=== PATIENT | female | born 1985 | race Caucasian/White ===

== ENCOUNTER 2022-06-18 13:19 | Outpatient (CLI) | payer BC, SELFPAY ==
[2022-06-18 20:08] LABS: Hepatitis B Surface Antibody* Negative (Negative)
[2022-06-21 03:03] LABS: Varicella-Zoster Virus Ab, IgG 168.9 IV
[2022-06-21 03:05] LABS: Rubella Antibody IgG 51.8 IU/mL
== END 2022-06-18 13:20 | disposition home or self-care (01) ==
PROVIDERS: PCP Family Medicine; Visit Provider Family Medicine
DX: Z00.00 Encounter for general adult medical examination without abnormal findings (principal); Z71.85 Encounter for immunization safety counseling
CPT/HCPCS: 86706; 86735; 86762; 86765; 86787

== ENCOUNTER 2022-12-25 00:18 | Emergency (ER) | payer BC, SELFPAY ==
[2022-12-25] VITALS (17 sets, daily range): BP systolic 117–159; BP diastolic 72–114; PULSE 58–78; RESP 20; TEMP 36.7; O2SAT 91–99; BMI 27.5
[2022-12-25] MEDS: 0.9 % SODIUM CHLORIDE 1000 ml 1,000 ML IV (00:29)
--- NOTE | 2022-12-25 00:30 | ED_ITS ---
HPI - General Adult General Chief complaint: Neuro Symptoms/Altered Deficit Stated complaint: Overdose Time Seen by Provider: 12/25/22 00:27 Source: family Mode of arrival: EMS Limitations: language barrier (Hearing impaired) History of Present Illness HPI narrative: Hearing impaired woman comes in with her adult daughter. Daughter reports that patient had been behaving normally most of the night. They had dinner as a family, she was awake and talking to daughter and sibling up until about 2 hours prior to arrival. About 30 minutes prior to arrival, patient came into daughters room, flopped down on daughters bed and daughter notice that she seemed impaired. She kept clutching her chest and was twitching. She seemed anxious. Daughter thinks that she might have eaten an edible from the tobacco store. Uncertain of contents. She does not typically use drugs per daughter report. Uncertain with time of ingestion. No prior cardiac history, no stroke history. No alcohol intoxication. No trauma or injury. No prior history of similar symptoms. History is incredibly limited as patient is hearing impaired and we are triage ring her quickly, cloth boil off machine operator video monitor is in another room with a Turkmen- speaking patient. Patient is groggy and would not be able to use the video cloth boil off machine operator at the moment anyway. Daughter does attempt to interpret. Daughter states that she does not read lips. Daughter states that past medical history is benign, no major long-term health problems. No prescription medications, no allergies. No recent surgeries. Socially, she does smoke tobacco and they have reason to suspect that she ingested the edible tonight. No recent travel. ROS is limited by situation, daughter states that she has been behaving normally and has not complained of any ailments today times 12 systems. Related Data Home Medications Medication Instructions Recorded Confirmed No Known Home Medications 06/18/22 12/25/22 Allergies Allergy/AdvReac Type Severity Reaction Status Date / Time No Known Drug Allergies Allergy Verified 12/25/22 00:30 [facility] Medical History Deaf ?H91.90 - Unspecified hearing loss, unspecified ear (ICD-10) Surgical History No significant past surgical history Social History Smoking Status: Never smoker Exam Const: Vital Signs, click to edit/add: Vital Signs - 24 hr 12/25/22 00:27 12/25/22 00:33 12/25/22 00:25 Temperature 98.0 F Pulse Rate 77 Pulse Rate [Right Pulse Oximeter] 72 Respiratory Rate 20 Blood Pressure 149/94 H Blood Pressure [Ri ght Upper Arm] 143/89 H Pulse Oximetry 99 94 91 Oxygen Delivery Me thod Room Air 12/25/22 00:28 12/25/22 00:29 12/25/22 00:30 Temperature Pulse Rate 65 60 58 L Pulse Rate [Right Pulse Oximeter] Respiratory Rate Blood Pressure 130/76 Blood Pressure [Ri ght Upper Arm] Pulse Oximetry 99 97 97 Oxygen Delivery Me thod 12/25/22 00:31 12/25/22 00:45 12/25/22 01:00 Temperature Pulse Rate 60 60 78 Pulse Rate [Right Pulse Oximeter] Respiratory Rate Blood Pressure 117/77 Blood Pressure [Ri ght Upper Arm] Pulse Oximetry 97 98 97 Oxygen Delivery Me thod 12/25/22 01:02 12/25/22 01:03 12/25/22 01:15 Temperature Pulse Rate 78 71 62 Pulse Rate [Right Pulse Oximeter] Respiratory Rate Blood Pressure 154/72 H Blood Pressure [Ri ght Upper Arm] Pulse Oximetry 99 98 98 Oxygen Delivery Me thod 12/25/22 01:30 12/25/22 01:31 12/25/22 01:45 Temperature Pulse Rate 72 72 63 Pulse Rate [Right Pulse Oximeter] Respiratory Rate Blood Pressure 159/85 H Blood Pressure [Ri ght Upper Arm] Pulse Oximetry 98 98 99 Oxygen Delivery Me thod 12/25/22 02:00 12/25/22 02:02 Temperature Pulse Rate 73 71 Pulse Rate [Right Pulse Oximeter] Respiratory Rate Blood Pressure 130/114 H Blood Pressure [Ri ght Upper Arm] Pulse Oximetry 99 99 Oxygen Delivery Me thod Documenting provider has reviewed patient's vital signs: yes Exam limitations: altered mental status and language barrier Other: Appears well-nourished, well-hydrated. She is well groomed. It is clear that she is drowsy but arousable. Rare Twitching movements seem under her conscious control. There is no evidence of seizure activity. HENMT: Common normals: normocephalic Head and scalp: normocephalic Face and sinus: normal facial exam Mouth: oral and palatal mucosa normal Throat: posterior oropharynx normal Eye: Common normals: conjunctivae normal General eye: normal appearance of both eyes Conjunctiva: conjunctiva(e) normal Other: Pupils equal Neck & C-Spine: Common normals: full ROM and no lymphadenopathy Resp: Common normals: normal respiratory effort, no retractions, no use of accessory muscles and clear to auscultation bilaterally Auscultation: clear to auscultation bilaterally Cardio: Common normals: regular rate, regular rhythm, S1 normal heart sound, S2 normal heart sound and no murmurs Rate: regular rate Rhythm: regular rhythm Heart sounds: S1 normal and S2 normal GI: Common normals: Normal to inspection, nondistended, normoactive bowel sounds present, soft to palpation, non-tender and no hepatosplenomegaly Palpation: soft and no hepatosplenomegaly Back & Pelvis: Common normals: thoracic and lumbar spine normal to inspection Extremity: Common normals: normal to inspection, full ROM and normal capillary refill Neuro: Sensorium/orientation: somnolent Motor exam: muscle tone normal throughout Psych: Other: Attention and judgment impaired on initial exam. Seems mildly anxious Skin: Common normals: no rashes or lesions noted Narrative: No signs of trauma or drug use. General skin exam: no rashes or lesions noted Course Vital Signs Vital signs: Initial Vital Signs Pulse Rate 77 12/25/22 00:25 Blood Pressure 149/94 H 12/25/22 00:25 Blood Pressure Mean 112 H 12/25/22 00:25 Pulse Oximetry 91 12/25/22 00:25 Vital Signs Pulse Rate 77 12/25/22 00:25 Blood Pressure 149/94 H 12/25/22 00:25 Pulse Oximetry 91 12/25/22 00:25 Temperature 98.0 F 12/25/22 00:27 Pulse Rate 71 12/25/22 02:02 Respiratory Rate 20 12/25/22 00:27 Blood Pressure 130/114 H 12/25/22 02:02 Pulse Oximetry 99 12/25/22 02:02 Oxygen Delivery Method Room Air 12/25/22 00:27 Medical Decision Making MDM Narrative Medical decision making narrative: Suspect mild intoxication. Vital signs are stable. EKG reassuring. Protecting her airway and no signs of hypoxia. Will start some normal saline, observed. Her symptoms should alan. If any signs of neurological deterioration, recommend further workup. Consider benzodiazepine if anxiety worsens. Will likely monitor a couple of hours. Will attempt to repeat neuro exam and repeat interview once patient is more alert and can participate with video cloth boil off machine operator or daughter restaurant greeter Update: 130: Patient becoming more alert. Friend restaurant greeter is here now also. Daughter has a picture of the product that they suspect she took. It is a Delta 8 gummy with THC. We are uncertain how many she took but the package contains 10 product. Patient will arouse to touch, no longer twitching. She is no longer clutching at her chest as she was doing at home seems mildly anxious and uncomfortable. Daughter asks if she can take her home. I recommended 2 hours of observation. My rationale is that any potential ingestion should peak by then. But I do anticipate that she will be able to go home without any further treatment. She has completed her fluid, normal labs reviewed with family. Update: Patient monitored until she was able to safely ambulate with her family, so mildly drowsy but neurologically at baseline. Discharge instructions given. Lab Data Lab results reviewed: Yes I reviewed the patient's lab results Lab results narrative: Reassured Labs: Lab Results 12/25/22 12/25/22 Range/Units 00:26 00:27 WBC 12.73 H (4.50-11.00) K/uL RBC 4.69 (4.00-5.20) m/uL Hgb 13.3 (12.0-16.0) gm/dL Hct 39.9 (33.0-51.0) % MCV 85 (80-100) fL MCH 28 (26-34) pg MCHC 33 (32-36) gm/dL RDW Coeff of Sada 12.7 (11.5-15.5) % Plt Count 314 (140-440) K/uL Neut % (Auto) 43.3 (42.0-72.0) % Lymph % (Auto) 48.8 H (20-44) % [place] % (Auto) 6.3 (0.0-11.0) % Eos % (Auto) 1.1 (0.0-7.0) % Baso % (Auto) 0.3 (0.0-3.0) % Neut # (Auto) 5.50 (1.7-7.0) K/uL Lymph # (Auto) 6.20 H (0.90-2.90) K/uL [place] # (Auto) 0.80 (0.00-0.90) K/UL Eos # (Auto) 0.10 (0.00-0.50) K/uL Baso # (Auto) 0.00 (0.00-0.30) K/uL Sodium 138 (135-149) mmol/L Potassium 3.4 L (3.6-5.1) mmol/L Chloride 106 (96-114) mmol/L Carbon Dioxide 25 (20-32) mmol/L BUN 12 (5-24) mg/dL Creatinine 0.8 (0.5-1.5) mg/dL Estimated Creat Clear 82.33 Estimated GFR 97 ml/min Glucose 169 H (60-115) mg/dL Calcium 9.0 (8.4-10.6) mg/dL Troponin I < 0.01 L (0.01-0.04) ng/mL C-Reactive Protein 0.6 (0.5-1.0) mg/dL HCG, Qual Negative (Negative) Ethyl Alcohol < 0.01 L (0.01-0.03) % POC Troponin I 0.00 L (0.01-0.04) ng/ml ECG Data Attestation: I personally reviewed and interpreted this ECG as follows: Prior ECG tracings: not available for review Interpretation: Normal sinus rhythm, rate 64. No significant ST or T-wave abnormalities. Normal axis, good R-wave progression. Normal EKG Discharge Plan Discharge Clinical Impression: Side effect of drug Patient Disposition: Home w/ Parent or Adult Condition: Improved Instructions: Adverse Drug Reaction (ED) Additional Instructions: Unfortunately, side effects from THC can be unpredictable. Most people take these products with the intent of making them calm. Unfortunately, sometimes the instead make you paranoid and restless. Blood work is very reassuring, there are no signs of poisoning, seizure, heart problems or other complication. The side effects do seem to be improving with time. It will take 5-8 hours to completely wear off. It is okay to use melatonin or Benadryl to help sleep. I do not recommend use of THC products for you in the future. The side effects and experience overall can be quite unpredictable. You may resume all usual activities morning. Activity Level: No Restrictions Discharge Diet: Regular Prescriptions: No Action No Known Home Medications Follow Up/Referrals: Jarred Rodriguez MD [Primary Care Provider] - Stand Alone Forms: [employer] Info Instructions
[2022-12-25 00:36] LABS: Basophils Percent Auto 0.3 % (0.0-3.0); Eosinophils Percent Auto 1.1 % (0.0-7.0); Hematocrit 39.9 % (33.0-51.0); Hemoglobin* 13.3 gm/dL (12.0-16.0); Immature Granulocytes Pct Auto 0.2 %; Lymphocytes Percent Auto 48.8 % (20-44); Mean Corpuscular HGB Conc 33 gm/dL (32-36); Mean Corpuscular Hemoglobin 28 pg (26-34); Mean Corpuscular Volume 85 fL (80-100); Monocytes Percent Auto 6.3 % (0.0-11.0); Neutrophils Percent Auto 43.3 % (42.0-72.0); Platelet Count* 314 K/uL (140-440); RDW Coefficient of Variation % 12.7 % (11.5-15.5); Red Blood Count 4.69 m/uL (4.00-5.20); White Blood Count* 12.73 K/uL (4.50-11.00)
[2022-12-25 00:45] LABS: Slide Review Reflex No
[2022-12-25 00:49] LABS: Chloride* 106 mmol/L (96-114); Potassium* 3.4 mmol/L (3.6-5.1); Sodium* 138 mmol/L (135-149)
[2022-12-25 00:51] LABS: Creatinine* 0.8 mg/dL (0.5-1.5); Est. Creatinine Clearance* 82.33; Estimated Glomerular Filt Rate 97 ml/min
[2022-12-25 00:52] LABS: Blood Urea Nitrogen* 12 mg/dL (5-24); Carbon Dioxide* 25 mmol/L (20-32); Glucose* 169 mg/dL (60-115)
--- NOTE | 2022-12-25 00:54 | ED.NURSE ---
we will be contacting asl to come in person to interpret for patient. daughter and patient advocate at bedside.
[2022-12-25 00:55] LABS: C Reactive Protein* 0.6 mg/dL (0.5-1.0)
[2022-12-25 00:58] LABS: HCG Qualitative Serum* Negative (Negative)
[2022-12-25 01:17] LABS: Ethanol* < 0.01 % (0.01-0.03); Troponin I* < 0.01 ng/mL (0.01-0.04)
--- NOTE | 2022-12-25 03:27 | ED.NURSE ---
Daughter intreperting for patient. Patient instructed to provide urine sample. She did not provide urine sample.
== END 2022-12-25 04:14 | disposition home or self-care (01) ==
PROVIDERS: Emergency Provider Family Medicine; PCP Family Medicine
DX: T40.711A Poisoning by cannabis, accidental (unintentional), initial encounter (principal)
CPT/HCPCS: 36415; 80048; 80306; 82077; 84484; 84703; 85025; 86140; 93005; 94761; 99284; J7030

== ENCOUNTER 2024-03-23 01:03 | Outpatient (CLI) | payer OTHER, SELFPAY ==
--- OUTSIDE RECORDS SUMMARY | 2024-04-05 22:35 | XMS_ITS | Clinical Summary ---
Author Organization [facility] Address [place], [place] [address] Care Team Providers Care Director Asset Name Role Phone Suzy Qureshi Primary Primary Care Provider Unavailabl e Allergies No known active allergies Medications Medication Sig Dispensed Refills Start Date End Date Status vitamin-folic acid 1 mg ( VITAMIN) tablet/capsuleIndicat ions: confirmed by positive urine test Take 1 tablet by mouth once daily. 90 tablet 4 02/18/2016 Active Active Problems Problem Noted Date Diagnosed Date Deaf, nonspeaking 02/26/2016 Immunizations Name Administration Dates Next Due Influenza, IIV4 05/21/2016 Tdap 05/21/2016 Family History Medical History Relation Name Comments Unknown Brother 4 Unknown Brother 5 Unknown Brother 6 Unknown Father Unknown Maternal Grandfather Unknown Maternal Grandmother Unknown Mother Unknown Paternal Grandfather Unknown Paternal Grandmother Relation Name Status Comments Brother 1 Alive Brother 2 Alive Brother 3 Brother 4 Brother 5 Brother 6 Father Alive Maternal Grandfather Maternal Grandmother Mother Alive Paternal Grandfather Paternal Grandmother Social History Tobacco Use Types Packs/Day Years Used Date Smoking Tobacco: Never Smokeless Tobacco: Never Tobacco Cessation:Counseling Given: Yes Alcohol Use Standard Drinks/Week Comments No 0 (1 standard drink = 0.6 oz pur e alcohol) Sex and Gender Information Value Date Recorded Sex Assigned at Not on file Gender Identity Not on file Sexual Orientation Not on file Obstetrics History Para Term AB IAB SAB Ectopic Multiple Livin g Live Births 6 4 4 1 1 4 Date Outcome GA Total Labor Labor/2nd/3rd Weight Sex Type Anes PTL Clau A1 A5 Name Clin Term Term Term Term SAB Last Filed Vital Signs Vital Sign Reading Time Taken Comments Blood Pressure 124/78 05/21/2016 3:57 PM CDT Pulse 78 05/21/2016 3:57 PM CDT Temperature 37.1 ??C (98.7 ??F) 05/21/2016 3:57 PM CD T Respiratory Rate 18 02/18/2016 3:06 PM CDT Oxygen Saturation 97% 05/21/2016 3:57 PM CDT Inhaled Oxygen Concentration - - Weight 59.1 kg (130 lb 3.2 oz) 05/21/2016 3:57 P M CDT Height 156 cm (5' 1.42) 02/26/2016 3:34 PM CDT Body Mass Index 24.27 02/26/2016 3:34 PM CDT Plan of Treatment Health Maintenance Due Date Last Done Comments Depression screening for age 12+ 1996 HIV for age 15-65 1999 Hepatitis C screening for ag e 18-79 2002 BMI (ht and wt on same day) for age 18+ 02/25/2017 02/26/2016, 02/18/2016 Pap test for age 21-65 01/01/2018 5, 02/13/2005 COVID-19 vaccine series (2022- season) 2023 Influenza for age 9-49 05/01/2024 05/21/2016 Tetanus booster 05/21/2026 05/21/2016 Tdap Completed 05/21/2016 Pneumococcal series for age 6-64 Aged Out No longer eligible b ased on patient's age to complete this topic Procedures Procedure Name Priority Date/Time Associated Diagnosis Comments AUTO DAMAGE ADJUSTER THIN PREP PAP SCREEN IMAGED Routine 01/01/2015 4:52 PM CDT Screening for cervical cancer from Last 3 Months or Most Recently Relevant to Health Maintenance Results * AUTO DAMAGE ADJUSTER THIN PREP PAP SCREEN IMAGED (01/01/2015 4:52 PM CDT) AUTO DAMAGE ADJUSTER CYTOLOGY See Anatomic Pathology case 01/06/2015 5:00 PM CDT [facility] Specimen (specimen) (Cervical/Vagina l) Non-Blood / Unknown 01/01/2015 4:52 PM CDT 01/01/2015 4:52 PM CDT German Holland MD PATHOLOGY/CYTOLOGY [facility] [address] [place] [address], from Last 3 Months or Most Recently Relevant to Health Maintenance Care Teams Director Asset Relationship Specialty Start Date End Date , No Primary . PCP - General 03/24/06
== END 2024-03-23 01:04 | disposition home or self-care (01) ==
LOC: AMB 04-05 22:33
PROVIDERS: PCP Family Medicine; Visit Provider Family Medicine
DX: R07.89 Other chest pain (principal)
CPT/HCPCS: A0425; A0433

== ENCOUNTER 2024-03-23 01:27 | Emergency (ER) | payer OTHER, SELFPAY ==
--- NOTE | 2024-03-23 01:30 | ED_ITS ---
HPI - General Adult General Time Seen by Provider: 01:30 Date Seen: 03/23/24 Chief complaint: Chest Pain Stated complaint: Chest pain Time Seen by Provider: 03/23/24 01:29 Source: patient and EMS Mode of arrival: EMS Limitations: no limitations History of Present Illness HPI narrative: 38-year-old female who comes in by EMS for chest pain. History is limited due to patient being uncooperative but per family, patient was drinking vodka tonight which which she does not normally do, started vomiting is complaining of chest pain. Patient notes left-sided and epigastric pain as well as chest pain. No radiation, no shortness of breath. Related Data Previous Rx's ?Medication ?Instructions ?Recorded sucralfate 1 gram tablet (Carafate) 1 g PO BID #14 tabs 03/23/24 Allergies Allergy/AdvReac Type Severity Reaction Status Date / Time No Known Drug Allergies Allergy Verified 12/25/22 00:30 [facility] Medical History Deaf ?H91.90 - Unspecified hearing loss, unspecified ear (ICD-10) Surgical History No significant past surgical history Social History Smoking Status: Never smoker Do you use any of these nicotine containing products: None Second hand tobacco smoke exposure: No How often do you have a drink containing alcohol: monthly or less How many standard drinks containing alcohol do you have on a typical day: 1 or 2 How often do you have six or more drinks on one occasion: Less than monthly AUDIT-C Alcohol total score: 2 Non-prescribed substance use: denies use service: No Exam Narrative: Exam Narrative: General: Well-developed and well-nourished, no acute distress Head: Atraumatic and normocephalic Eyes: Pupils are equal reactive, extraocular motions intact, conjunctiva clear ENT: External nose and ears are normal, posterior pharynx without erythema or exudate Neck: No midline cervical tenderness, full spontaneous range of motion the neck, trachea midline, no adenopathy Heart: Regular rate and rhythm no murmurs or thrills Lungs: Clear to auscultation bilaterally without wheezes or crackles Abdomen: Soft, epigastric and left upper quadrant tenderness, nondistended with active bowel sounds Musculoskeletal: No tenderness, deformity, or edema Neurologic: Awake, alert, and oriented x3, no gross focal neurologic deficits, cranial nerves intact as tested Psych: Mood and affect are appropriate Skin: No rashes Const: Vital Signs, click to edit/add: Vital Signs - 24 hr 03/23/24 01:51 Temperature 97.6 F Pulse Rate [Pulse Oximeter] 77 Respiratory Rate 20 Blood Pressure [Ri ght Upper Arm] 132/82 Pulse Oximetry 100 Oxygen Delivery Me thod Room Air Course Course ED Course: Patient seen examined, reviewed prior emergency department visit which was for chest pain and was thought to possibly have had an edible earlier in the evening, emergency department evaluation is reassuring and patient to return to normal mentation today course of her visit. Patient presents today with upper abdominal and chest pain as well as vomiting started after drinking alcohol tonight. On exam here, patient is likely stable, initial EKG reassuring although poor baseline will need to be repeated. Epigastric and left upper quadrant tenderness. Symptoms are most consistent with alcoholic gastritis and reflux, will evaluate for pancreatitis are other upper abdominal pathology and also acute coronary syndrome. EKG independently interpreted by me performed at 1:43 a.m. with normal sinus rhythm, no acute ST elevations or depressions, normal intervals, normal axis, W[place] 130, QTC 440. Compared to prior November 2022, no acute changes. Reevaluation(s) Time of Reevaluation #1: 02:29 Reevaluation #1: Labs ordered and independently interpreted by me with is negative troponin. Patient feels better. Time of Reevaluation #2: 02:48 Reevaluation #2: Labs ordered and independently interpreted by me with normal basic panel, normal hepatic panel, normal lipase, alcohol level elevated at 0.17. Patient recheck, discussed findings and plan, patient is stable for discharge with outpatient follow-up. Vital Signs Vital signs: Initial Vital Signs Temperature 97.6 F 03/23/24 01:51 Temperature Source Temporal Artery Scan 03/23/24 01:51 Pulse Rate 77 03/23/24 01:51 Respiratory Rate 20 03/23/24 01:51 Blood Pressure 132/82 03/23/24 01:51 Blood Pressure Mean 98 03/23/24 01:51 Blood Pressure Position Sitting 03/23/24 01:51 Pulse Oximetry 03/23/24 01:51 Oxygen Delivery Method Room Air 03/23/24 01:51 Vital Signs Temperature 97.6 F 03/23/24 01:51 Pulse Rate 77 03/23/24 01:51 Respiratory Rate 20 03/23/24 01:51 Blood Pressure 132/82 03/23/24 01:51 Pulse Oximetry 100 03/23/24 01:51 Oxygen Delivery Method Room Air 03/23/24 01:51 Temperature 97.6 F 03/23/24 01:51 Pulse Rate 77 03/23/24 01:51 Respiratory Rate 20 03/23/24 01:51 Blood Pressure 132/82 03/23/24 01:51 Pulse Oximetry 03/23/24 01:51 Oxygen Delivery Method Room Air 03/23/24 01:51 Medications Administered Medications: Discontinued Medications Generic Name Dose Route Start Last Admin Trade Name Freq PRN Reason Stop Dose Admin Famotidine 20 mg 03/23/24 01:41 03/23/24 02:05 Famotidine 10 Mg/Ml Inj IVP 03/23/24 01:42 20 mg ONCE ONE Administration Lidocaine/Aluminum/Magnesium/Simeth 15 ml 03/23/24 01:39 03/23/24 02:05 Mag Hydrox/Aluminum Hyd/Simeth 30 Ml Oral.Susp PO 03/23/24 01:40 15 ml ONCE ONE Administration Medical Decision Making Lab Data Labs: Lab Results 03/23/24 03/23/24 Range/Units 01:40 02:20 WBC 9.07 (4.50-11.00) K/uL RBC 4.43 (4.00-5.20) m/uL Hgb 12.7 (12.0-16.0) gm/dL Hct 38.5 (33.0-51.0) % MCV 87 (80-100) fL MCH 29 (26-34) pg MCHC 33 (32-36) gm/dL RDW Coeff of Sada 12.5 (11.5-15.5) % Plt Count 231 (140-440) K/uL Neut % (Auto) 74.7 H (42.0-72.0) % Lymph % (Auto) 20.7 (20-44) % [place] % (Auto) 3.6 (0.0-11.0) % Eos % (Auto) 0.4 (0.0-7.0) % Baso % (Auto) 0.4 (0.0-3.0) % Neut # (Auto) 6.80 (1.7-7.0) K/uL Lymph # (Auto) 1.88 (0.90-2.90) K/uL [place] # (Auto) 0.30 (0.00-0.90) K/UL Eos # (Auto) 0.04 (0.00-0.50) K/uL Baso # (Auto) 0.04 (0.00-0.30) K/uL Abs Immat Gran (auto) 0.02 (0.00-0.30) K/uL Imm/Tot Granulo (auto) 0.2 % Sodium 141 (135-149) mmol/L Potassium 3.5 L (3.6-5.1) mmol/L Chloride 110 (96-114) mmol/L Carbon Dioxide 22 (20-32) mmol/L Anion Gap 9 (7-15) mEq/L BUN 10 (5-24) mg/dL Creatinine 0.7 (0.5-1.5) mg/dL Estimated GFR 113 ml/min Glucose 132 H (60-115) mg/dL Calcium 8.2 L (8.4-10.6) mg/dL Magnesium 2.1 (1.5-2.6) mg/dL Total Bilirubin 0.3 (0.1-1.5) mg/dL Direct Bilirubin 0.2 (0.0-0.5) mg/dL AST 20 (12-35) U/L ALT 13 (4-35) U/L Alkaline Phosphatase 46 (40-150) U/L Total Protein 7.1 (6.0-8.3) g/dL Albumin 4.2 (3.3-5.0) g/dL Lipase 56 (23-300) U/L Ethyl Alcohol 0.17 H (0.01-0.03) % POC Troponin I 0.00 L (0.01-0.04) ng/ml Discharge Plan Discharge Clinical Impression: Chest pain, Acute alcoholic gastritis Patient Disposition: Home, Self-Care Condition: Stable Instructions: Chest Pain (DC), Gastritis (DC), Diet for Stomach Ulcers and Gastritis (ED) Additional Instructions: Take Maalox as needed Take Zofran as needed for nausea and vomiting Take Carafate daily for seven days Activity Level: Activity as Tolerated Discharge Diet: Regular Prescriptions: New sucralfate [Carafate] 1 gram tablet 1 g PO BID Qty: 14 0RF Follow Up/Referrals: Jarred Rodriguez MD [Primary Care Provider] - Stand Alone Forms: [id number] Info Instructions
[2024-03-23 01:51] VITALS: BP 132/82; PULSE 77; RESP 20; TEMP 36.4; O2SAT 100
[2024-03-23] MEDS: MAG HYDROX/ALUMINUM HYD/SIMETH 30 ML ORAL.SUSP 15 ML PO (02:05)
[2024-03-23] MEDS: FAMOTIDINE 10 MG/ML inj 20 MG IVP (02:05)
[2024-03-23 02:28] LABS: Basophils Absolute Auto 0.04 K/uL (0.00-0.30); Basophils Percent Auto 0.4 % (0.0-3.0); Eosinophils Absolute Auto 0.04 K/uL (0.00-0.50); Eosinophils Percent Auto 0.4 % (0.0-7.0); Hematocrit 38.5 % (33.0-51.0); Hemoglobin* 12.7 gm/dL (12.0-16.0); Immature Granulocytes Abs Auto 0.02 K/uL (0.00-0.30); Immature Granulocytes Pct Auto 0.2 %; Lymphocytes Absolute Auto 1.88 K/uL (0.90-2.90); Lymphocytes Percent Auto 20.7 % (20-44); Mean Corpuscular HGB Conc 33 gm/dL (32-36); Mean Corpuscular Hemoglobin 29 pg (26-34); Mean Corpuscular Volume 87 fL (80-100); Monocytes Percent Auto 3.6 % (0.0-11.0); Neutrophils Percent Auto 74.7 % (42.0-72.0); Platelet Count* 231 K/uL (140-440); RDW Coefficient of Variation % 12.5 % (11.5-15.5); Red Blood Count 4.43 m/uL (4.00-5.20); White Blood Count* 9.07 K/uL (4.50-11.00)
[2024-03-23 02:31] LABS: Slide Review Reflex No
[2024-03-23 02:40] LABS: Albumin* 4.2 g/dL (3.3-5.0); Chloride* 110 mmol/L (96-114); Sodium* 141 mmol/L (135-149)
[2024-03-23 02:41] LABS: Potassium* 3.5 mmol/L (3.6-5.1)
[2024-03-23 02:43] LABS: Alkaline Phosphatase* 46 U/L (40-150); Aspartate Amino Transferase* 20 U/L (12-35); Bilirubin Direct* 0.2 mg/dL (0.0-0.5); Bilirubin Total* 0.3 mg/dL (0.1-1.5); Blood Urea Nitrogen* 10 mg/dL (5-24); Calcium* 8.2 mg/dL (8.4-10.6); Carbon Dioxide* 22 mmol/L (20-32); Creatinine* 0.7 mg/dL (0.5-1.5); Estimated Glomerular Filt Rate 113 ml/min; Glucose* 132 mg/dL (60-115); Lipase* 56 U/L (23-300); Total Protein* 7.1 g/dL (6.0-8.3)
[2024-03-23 02:44] LABS: Alanine Aminotransferase* 13 U/L (4-35); Anion Gap 9 mEq/L (7-15); Ethanol* 0.17 % (0.01-0.03); Magnesium* 2.1 mg/dL (1.5-2.6)
[2024-03-23 04:00] VITALS: BP 130/78; PULSE 82; RESP 18; TEMP 36.6; O2SAT 99
== END 2024-03-23 04:02 | disposition home or self-care (01) ==
LOC: ED 03:52
PROVIDERS: Emergency Provider Family Medicine; PCP Family Medicine
DX: R07.9 Chest pain, unspecified (principal); K29.20 Alcoholic gastritis without bleeding
CPT/HCPCS: 36415; 80048; 80076; 82077; 83690; 83735; 84484; 85025; 93005; 96374; 99284; A9270; S0028